=== PATIENT | male | born 1965 | race Hispanic/Latino ===

== ENCOUNTER 2019-09-04 03:17 | Inpatient (IN) | payer BC ==
--- NOTE | 2019-09-04 08:51 | History and Physical Report ---
GP History & Physical - History of Present Illness Date of admission: 09/03/19 Date of Examination: 09/04/19 Reason for Admission: Danger to self, Severe anxiety/depression Chief Complaint: I took a bottle of pills History of Present Illness: 54 year old , single male admitted to the unit 09/04/2019 for a suicide attempt. Pt OD on a large amount of Seroquel, Amlodopine, while drinking 9 can of beers. During patient's evaluation today, pt stated that he is here because he took too much medication because he was overwhelmed with all of the bad things that happened to him recently. Patient stated that his mom had , he's in a custody hanna with the mother of his son and his job is putting too much pressure on him. Pt continues by saying "she was just taking my money and blowing it." Pt stated that he was referring to the mother of his child who was reaching out to him saying she needed large amounts of money for the kid when in reality it was for her to use it on whatever she wanted. Pt confirms that he was sleeping well up until 6 months ago when all of this started to take place. Pt also stated that he has a good appetite, and he had not been drinking until Monday night when the pressure became too much. Pt denies hallucination, paranoia, and panic attacks but does state that he was prescribed Cymbalta 3-4 years ago that started from pressure at work. Pt denies any attempt of suicide and the past and confirms that this is his first attempt. Pt denies any family history of mental health conditions, denies legal issues, denies drug use and denies smoking but does state that he smokes sometimes. Pt denies having a gun and denies feeling suicidal at the moment. Pt had one concern regarding Seroquel, he would like to remove this medication. Pt states that Seroquel does help him sleep well but it carries over to the next day leaving him still sleepy and sluggish which has caused problems at work with him showing up and slurring his meds. The pt feels that the meds slows him down and that he tried cutting the dose and half but still received the same outcome. MSE Orientation: A&O X 4 Affect: flat Mood: depressed Thought Process:organized Perceptions: nad Speech: normal Concentration: focused Motor activity: normal Level of consciousness: alert and oriented Memory: intact Interaction: cooperative and pleasant Legal Status: Voluntary Patient Problems: Current Active Problems MDD (major depressive disorder), recurrent episode, severe (Acute) Reaction to Hospitalization: Accepting Medications and Allergies Allergies Allergy/AdvReac Type Severity Reaction Status Date / Time No Known Allergies Allergy Unverified 09/04/19 04:49 Home Medications Medication Instructions Recorded Confirmed Last Taken Type ARIPiprazole [Abilify TAB] 10 mg PO QHS 09/04/19 09/04/19 Unknown History Allopurinol [Zyloprim] 100 mg PO DAILY 09/04/19 09/04/19 Unknown History Duloxetine HCl 60 mg PO DAILY 09/04/19 09/04/19 Unknown History Ergocalciferol (Vitamin D2) 1.25 mg PO QWEEK 09/04/19 09/04/19 Unknown History [Drisdol] Finasteride 5 mg PO DAILY 09/04/19 09/04/19 Unknown History Furosemide [Lasix TAB] 40 mg PO PRN PRN 09/04/19 09/04/19 Unknown History Insulin Degludec [Tresiba 120 unit SQ QHS 09/04/19 09/04/19 Unknown History Flextouch U-200] amLODIPine 10 mg PO DAILY 09/04/19 09/04/19 Unknown History cycloSPORINE [SandIMMUNE] 25 mg PO BID 09/04/19 09/04/19 Unknown History cycloSPORINE, MODIFIED [Neoral] 100 mg PO BID 09/04/19 09/04/19 Unknown History Substance History - Substance History Drug Use: none Hx Tobacco Use: Yes Tobacco Type: Cigarettes (socially ) Alcohol Use: Yes (Only during this issue) Past psychiatric history - Past Medical History Past Medical History: diabetes, hypertension, other (sleep apnea) Past Surgical History: No surgical history, Other (liver transplant) - past Psychiatric treatment and history Psych: Anxiety, Depression - Social History Social history: single, Lives alone Results - Results Labs/Vitals: Laboratory Last Values POC Glucose 251 (70-105) H 09/04/19 07:53 Physical Examination - Constitutional General appearance: Present: no acute distress - EENT Eyes: Present: PERRL, EOM intact ENT: hearing intact, clear oral mucosa - Neck Neck: Present: supple, normal ROM - Respiratory Respiratory effort: normal Mental Status Exam - Exam Orientation: time, place, person Affect: depressed Mood: congruent with affect Thought Process: Intact Perceptions: none Speech: normal rate and pattern Concentration: focused Motor activity: normal Level of consciousness: alert Memory: Intact Sleep Symptoms: Insomnia Interaction: cooperative Mini mental status exam(if necessary): 24-30 Assessment and Plan - Psychiatric problem (1) MDD (major depressive disorder), recurrent episode, severe Current Visit: Yes Status: Acute plan to address problem: Patient will be admitted for inpatient psychiatric evaluation, medication adjustment and close monitoring The patient's behavior, mood, sleep and appetite will be closely monitored. Patient will be enrolled in individual and group therapeutic sessions and encouraged to attend. Patient will be provided with a safe and structured environment. Patient's physical health needs will be addressed by the Hospitalist. Social Assessment will be completed and the Insurance Sales Executive will work with patient and family to ensure a suitable and safe disposition Medication adjustment will be made as clinically indicated The patient agreed on the treatment plan, understood the risk, benefit, alternative treatment, potential consequence of no treatment, and gave informed consent. Physician Certification - Certification Statement Physician Certification Statement: This is an acknowledgement statement that ANA LAURA BENNETT is a 54 year old M who requires inpatient psychiatric admission for treatment which could reasonably be expected to improve the patient's condition for depression Estimated period of time patient will need to remain in the hospital: 7 days Plan for post-hospital care: Out-patient care
[2019-09-04 10:46] LABS: Basophils # (Auto) 0.1 K/mm3 (0.0-0.1); Basophils % (Auto) 0.7 % (0.0-1.8); Eosinophils # (Auto) 0.1 K/mm3 (0.0-0.4); Eosinophils % (Auto) 0.6 % (0.0-4.3); Hematocrit 32.8 % (35.5-45.6); Hemoglobin 11.1 gm/dl (11.8-15.2); Lymphocytes # (Auto) 2.1 K/mm3 (1.2-5.4); Lymphocytes % (Auto) 26.4 % (13.4-35.0); Mean Corpuscular HGB Conc 34 % (32-34); Mean Corpuscular Volume 94 fl (84-94); Monocytes # (Auto) 0.6 K/mm3 (0.0-0.8); Monocytes % (Auto) 8.1 % (0.0-7.3); Platelet Count 225 K/mm3 (140-440); Red Blood Count 3.49 M/mm3 (3.65-5.03); Red Cell Distribution Width 14.6 % (13.2-15.2)
[2019-09-04 11:02] LABS: BUN/Creatinine Ratio 21; Blood Urea Nitrogen 31 mg/dL (9-20); Calcium 9.2 mg/dL (8.4-10.2); Chol/HDL Ratio 4.02 %; HDL Cholesterol 41 mg/dL (40-59); Hemolysis Index 5; LDL Cholesterol,Direct TNR mg/dL (50-130)
[2019-09-04] MEDS ORDERED: FLU VACC QUAD 2019-20 (3 YR UP)/PF 60 MCG/0.5 ML SYRINGE IM ONE (12:00)
--- NOTE | 2019-09-04 14:24 | Consultation ---
History of Present Illness - Reason for Consult Consult date: 09/04/19 Hypertension, diabetes Requesting physician: SHARON MARTINEZ - History of Present Illness Patient is 54 year old admitted to [place] for a suicide attempt. He allegedly took large amount of Seroquel, Amlodopine, while drinking 9 can of beers. He has hypertension, diabetes, history of liver transplant.. The hospitalist service has been consulted for management of medical co-morbidities. He denies chest pain, shortness of breath. Past History Past Medical History: diabetes, hypertension, other (sleep apnea) Past Surgical History: No surgical history, Other (liver transplant) Social history: single, Lives alone Family history: other (Unknown) Medications and Allergies Allergies Allergy/AdvReac Type Severity Reaction Status Date / Time No Known Allergies Allergy Unverified 09/04/19 04:49 Home Medications Medication Instructions Recorded Confirmed Last Taken Type ARIPiprazole [Abilify TAB] 10 mg PO QHS 09/04/19 09/04/19 Unknown History Allopurinol [Zyloprim] 100 mg PO DAILY 09/04/19 09/04/19 Unknown History Duloxetine HCl 60 mg PO DAILY 09/04/19 09/04/19 Unknown History Ergocalciferol (Vitamin D2) 1.25 mg PO QWEEK 09/04/19 09/04/19 Unknown History [Drisdol] Finasteride 5 mg PO DAILY 09/04/19 09/04/19 Unknown History Furosemide [Lasix TAB] 40 mg PO PRN PRN 09/04/19 09/04/19 Unknown History Insulin Degludec [Tresiba 120 unit SQ QHS 09/04/19 09/04/19 Unknown History Flextouch U-200] amLODIPine 10 mg PO DAILY 09/04/19 09/04/19 Unknown History cycloSPORINE [SandIMMUNE] 25 mg PO BID 09/04/19 09/04/19 Unknown History cycloSPORINE, MODIFIED [Neoral] 100 mg PO BID 09/04/19 09/04/19 Unknown History Review of Systems All systems: negative (No headache, no fever, no abd pain, no cough. All other systems reviewed and are negative.) Exam - Physical Exam Narrative exam: Gen: Not in acute distress, lying in bed, HEENT: Normocephalic, atraumatic Neck: supple, no JVD Heart: S1 and S2 reg, no murmurs, rubs or gallop Lungs: Clear to auscultation bilaterally, Abd: soft, non tender, non distended, normal BS, Ext: No edema, no clubbing, no cyanosis Neuro: Awake, alert, oriented X 3, no focal neurological signs - Constitutional Vitals: Temp Pulse Resp BP Pulse Ox 97.8 F 74 18 107/70 95 09/04/19 09:16 09/04/19 09:16 09/04/19 09:16 09/04/19 09:16 09/04/19 09:16 Results - Labs CBC & Chem 7: 09/04/19 10:00 09/04/19 10:00 Labs: Abnormal lab results 09/04/19 09/04/19 09/04/19 Range/Units 05:47 07:53 10:00 RBC 3.49 L (3.65-5.03) M/mm3 Hgb 11.1 L (11.8-15.2) gm/dl Hct 32.8 L (35.5-45.6) % [place] % (Auto) 8.1 H (0.0-7.3) % BUN (9-20) mg/dL Glucose (75-100) mg/dL POC Glucose 237 H 251 H (70-105) Hemoglobin A1c (4-6) % Triglycerides (2-149) mg/dL 09/04/19 09/04/19 09/04/19 Range/Units 10:00 10:00 11:48 RBC (3.65-5.03) M/mm3 Hgb (11.8-15.2) gm/dl Hct (35.5-45.6) % [place] % (Auto) (0.0-7.3) % BUN 31 H (9-20) mg/dL Glucose 278 H (75-100) mg/dL POC Glucose 229 H (70-105) Hemoglobin A1c 10.5 H (4-6) % Triglycerides 452 H (2-149) mg/dL Assessment and Plan Suicide attempt with drug overdose. Admitted to [facility] Unit Dr. Martinez attending Hypertension Monitor BP Diabetes mellitus type 2. Accuchek qa and hs he was on Tresiba at home Will give Novolin 70/30 bid here History of liver transplant Continue Cyclosporine Thanks Dr. Martinez for consulting us. Will follow peripherally.
[2019-09-04] MEDS ORDERED: DEXTROSE 50% IN WATER (25GM) 50 ML SYRINGE IV PRN (16:41)
[2019-09-04] MEDS ORDERED: NON-FORMULARY EACH (Duloxetine Hcl [Duloxetine Hcl] 60 MG) PO SCH (16:45)
[2019-09-04] MEDS: amLODIPine 10 MG TAB PO SCH (17:18)
[2019-09-04] MEDS: DULoxetine 30 MG CAP PO SCH (17:18)
[2019-09-04] MEDS: FINASTERIDE 5 MG TAB PO SCH (17:32)
[2019-09-04] MEDS: allopurinoL 100 MG TAB PO SCH (17:32)
[2019-09-04] MEDS: INSULIN NPH/REGULAR 70/30 INJ SUB-Q SCH (17:55)
[2019-09-04] MEDS: ARIPiprazole 10 MG TAB PO SCH (21:29)
[2019-09-04] MEDS: CYCLOSPORINE MODIFIED 25 MG PO SCH (21:30)
[2019-09-04] MEDS: INSULIN LISPRO 100 UNIT/ML SUB-Q SCH (21:30)
[2019-09-04] MEDS ORDERED: CYCLOSPORINE 25 MG PO SCH (22:00)
--- NOTE | 2019-09-05 07:27 | Progress Note ---
Subjective Date of service: 09/05/19 Principal diagnosis: Anxiety/Depression Subjective Comment: Patient presented sleeping with c-pap. Patient states that he slept great last night with no complaints. He describes his mood as good and expresses that he feels the effects of improvement. Patient only concern was to get back to work so he inquired about his date for discharge and stated that "I understand what I did wrong immediately after I done it". The Cargo Vessel Stewardess is working with patient to address multiple social stressors and I have encouraged him to participate in therapeutic activities on the holley focussing on coping skills Per nurses notes: Pt is alert and oriented x4, pt is calm and cooperative, able to make needs known, self care, reported that he sleeps with CPAP machine every night, hospitalist special collections librarian notified, order put in for cpap machine nightly, pt is slept with cpap machine on, pt slept well throughout the night, pt is compliant with medication, good appetite, consumed 100% of bedtime snacks, denies SI/HI, denies A/V/H, denies pain. Objective - Criteria for Continued Treatment Criteria for Continued Treatment: Improving Level of Functioning - Mental Status Mental Status: Oriented x 3 - Objective Observation Participation Level: Full Assessment and Plan - Patient Problems (1) MDD (major depressive disorder), recurrent episode, severe Current Visit: Yes Status: Acute Plan to address problem: Patient will be admitted for inpatient psychiatric evaluation, medication adjustment and close monitoring The patient's behavior, mood, sleep and appetite will be closely monitored. Patient will be enrolled in individual and group therapeutic sessions and encouraged to attend. Patient will be provided with a safe and structured environment. Patient's physical health needs will be addressed by the Hospitalist. Social Assessment will be completed and the Cargo Vessel Stewardess will work with patient and family to ensure a suitable and safe disposition Medication adjustment will be made as clinically indicated The patient agreed on the treatment plan, understood the risk, benefit, alternative treatment, potential consequence of no treatment, and gave informed consent. Medications and Allergies Allergies Allergy/AdvReac Type Severity Reaction Status Date / Time No Known Allergies Allergy Unverified 09/04/19 04:49 Home Medications Medication Instructions Recorded Confirmed Last Taken Type ARIPiprazole [Abilify TAB] 10 mg PO QHS 09/04/19 09/04/19 Unknown History Allopurinol [Zyloprim] 100 mg PO DAILY 09/04/19 09/04/19 Unknown History Duloxetine HCl 60 mg PO DAILY 09/04/19 09/04/19 Unknown History Ergocalciferol (Vitamin D2) 1.25 mg PO QWEEK 09/04/19 09/04/19 Unknown History [Drisdol] Finasteride 5 mg PO DAILY 09/04/19 09/04/19 Unknown History Furosemide [Lasix TAB] 40 mg PO PRN PRN 09/04/19 09/04/19 Unknown History Insulin Degludec [Tresiba 120 unit SQ QHS 09/04/19 09/04/19 Unknown History Flextouch U-200] amLODIPine 10 mg PO DAILY 09/04/19 09/04/19 Unknown History cycloSPORINE [SandIMMUNE] 25 mg PO BID 09/04/19 09/04/19 Unknown History cycloSPORINE, MODIFIED [Neoral] 100 mg PO BID 09/04/19 09/04/19 Unknown History Active Meds: Active Medications Allopurinol (Zyloprim) 100 mg PO DAILY [facility] Last Admin: 09/04/19 17:32 Dose: 100 mg Documented by: Amlodipine Besylate (Amlodipine) 10 mg PO DAILY [facility] Last Admin: 09/04/19 17:18 Dose: 10 mg Documented by: Aripiprazole (Aripiprazole) 10 mg PO QHS [facility] Last Admin: 09/04/19 21:29 Dose: 10 mg Documented by: Cyclosporine (Neoral) 100 mg PO BID [facility] Last Admin: 09/04/19 21:30 Dose: 100 mg Documented by: Cyclosporine (Gengraf) 25 mg PO BID [facility] Last Admin: 09/04/19 21:30 Dose: 25 mg Documented by: Dextrose (D50w (25gm) Syringe) 50 ml IV Q30MIN PRN; Protocol PRN Reason: Hypoglycemia Duloxetine HCl (Cymbalta) 60 mg PO QDAY [facility] Last Admin: 09/04/19 17:18 Dose: 60 mg Documented by: Ergocalciferol (Vitamin D2) 50,000 unit PO [facility] [place]ide (Proscar) 5 mg PO DAILY [facility] Last Admin: 09/04/19 17:32 Dose: 5 mg Documented by: Insulin Human Isoph/Insulin Regular (Humulin 70/30) 30 unit SUB-Q BIDDIAB [facility] Last Admin: 09/04/19 17:55 Dose: 30 unit Documented by: Insulin Human Lispro (Humalog) 0 unit SUB-Q [place]; Protocol Insulin Human Lispro (Humalog) 0 unit SUB-Q [facility]; Protocol Last Admin: 09/04/19 21:30 Dose: 3 unit Documented by: Results - Results Labs/Vitals: Laboratory Last Values WBC 8.0 K/mm3 (4.5-11.0) 09/04/19 10:00 RBC 3.49 M/mm3 (3.65-5.03) L 09/04/19 10:00 Hgb 11.1 gm/dl (11.8-15.2) L 09/04/19 10:00 Hct 32.8 % (35.5-45.6) L 09/04/19 10:00 MCV 94 fl (84-94) 09/04/19 10:00 MCH 32 pg (28-32) 09/04/19 10:00 MCHC 34 % (32-34) 09/04/19 10:00 RDW 14.6 % (13.2-15.2) 09/04/19 10:00 Plt Count 225 K/mm3 (140-440) 09/04/19 10:00 Lymph % (Auto) 26.4 % (13.4-35.0) 09/04/19 10:00 [place] % (Auto) 8.1 % (0.0-7.3) H 09/04/19 10:00 Eos % (Auto) 0.6 % (0.0-4.3) 09/04/19 10:00 Baso % (Auto) 0.7 % (0.0-1.8) 09/04/19 10:00 Lymph # 2.1 K/mm3 (1.2-5.4) 09/04/19 10:00 [place] # 0.6 K/mm3 (0.0-0.8) 09/04/19 10:00 Eos # 0.1 K/mm3 (0.0-0.4) 09/04/19 10:00 Baso # 0.1 K/mm3 (0.0-0.1) 09/04/19 10:00 Seg Neutrophils % 64.2 % (40.0-70.0) 09/04/19 10:00 Seg Neutrophils # 5.1 K/mm3 (1.8-7.7) 09/04/19 10:00 Sodium 138 mmol/L (137-145) 09/04/19 10:00 Potassium 3.8 mmol/L (3.6-5.0) 09/04/19 10:00 Chloride 98.9 mmol/L (98-107) 09/04/19 10:00 Carbon Dioxide 23 mmol/L (22-30) 09/04/19 10:00 Anion Gap 20 mmol/L 09/04/19 10:00 BUN 31 mg/dL (9-20) H 09/04/19 10:00 Creatinine 1.5 mg/dL (0.8-1.5) 09/04/19 10:00 Estimated GFR 49 ml/min 09/04/19 10:00 BUN/Creatinine Ratio 21 % 09/04/19 10:00 Glucose 278 mg/dL (75-100) H 09/04/19 10:00 POC Glucose 232 (70-105) H 09/04/19 20:23 Hemoglobin A1c 10.5 % (4-6) H 09/04/19 10:00 Calcium 9.2 mg/dL (8.4-10.2) 09/04/19 10:00 Triglycerides 452 mg/dL (2-149) H 09/04/19 10:00 Cholesterol 165 mg/dL (50-199) 09/04/19 10:00 LDL Cholesterol Direct TNR 09/04/19 10:00 HDL Cholesterol 41 mg/dL (40-59) 09/04/19 10:00 Cholesterol/HDL Ratio 4.02 % 09/04/19 10:00 Last Vital Signs Temp 98.6 F 09/04/19 22:00 Pulse 78 09/04/19 22:00 Resp 20 09/04/19 22:00 BP 145/78 09/04/19 22:00 Pulse Ox 98 09/04/19 22:00 Mental Status Exam - Vital signs Last Vital Signs Temp 98.6 F 09/04/19 22:00 Pulse 85 09/05/19 09:59 Resp 20 09/04/19 22:00 BP 136/82 09/05/19 09:59 Pulse Ox 98 09/04/19 22:00 - Exam Orientation: time, place, person Affect: anxious Mood: anxious Thought Process: Intact Perceptions: none Speech: normal rate and pattern Concentration: focused Motor activity: normal Level of consciousness: alert Memory: Intact Sleep Symptoms: None Interaction: cooperative Mini mental status exam(if necessary): 24-30
[2019-09-05] MEDS: INSULIN LISPRO 100 UNIT/ML SUB-Q SCH ×4 (08:38→22:00)
[2019-09-05] MEDS: INSULIN NPH/REGULAR 70/30 INJ SUB-Q SCH ×2 (09:17→16:40)
[2019-09-05] MEDS: amLODIPine 10 MG TAB PO SCH (09:59)
[2019-09-05] MEDS: DULoxetine 30 MG CAP PO SCH (09:59)
[2019-09-05] MEDS: FINASTERIDE 5 MG TAB PO SCH (10:00)
[2019-09-05] MEDS: CYCLOSPORINE MODIFIED 25 MG PO SCH ×2 (10:00→21:32)
[2019-09-05] MEDS: allopurinoL 100 MG TAB PO SCH (10:01)
[2019-09-05] MEDS: ARIPiprazole 10 MG TAB PO SCH (21:32)
[2019-09-06] MEDS: INSULIN LISPRO 100 UNIT/ML SUB-Q SCH ×2 (07:45→12:05)
--- NOTE | 2019-09-06 08:28 | Discharge Summary ---
Providers - Providers Date of Admission: 09/04/19 05:26 Date of discharge: 09/06/19 Attending physician: SHARON MARTINEZ MD 09/04/19 10:00 Consult to Physician [CONS] Routine Comment: Consulting Provider: EDUARDO GREENWOOD Physician Instructions: Reason For Exam: H&P and medical mgmt Primary care physician: SHARON MARTINEZ MD Hospitalization Reason for admission: Suicide attempt by od a large amount of tabs, while drinking 9 can of beers Condition: Stable Hospital course: The patient was provided inpatient psychiatric treatment with safe and supportive environment, group therapy, individual counseling, psychiatric medication, medication adjustment, adverse effect monitor, medical evaluation, medical treatment, social service assessment, family/social support meeting, placement assessment and psycho-education. The patients mood, anxiety, thoughts, stress management skill, cognition, impulse/anger control, motivation, understanding of disease, compliance to treatment and appreciation on family/social support are improved and stabilized. At the time of discharge, the patient had no suicidal ideas, no homicidal ideas, no aggressive thoughts, no endangering behavior and no debilitating adverse effects. Disposition: DC- TO HOME OR SELFCARE Allergies/Adverse Reactions: Allergies No Known Allergies Allergy (Unverified 09/04/19 04:49) Vital Signs: Last Vital Signs Temp 98.6 F 09/04/19 22:00 Pulse 85 09/05/19 09:59 Resp 20 09/04/19 22:00 BP 136/82 09/05/19 09:59 Pulse Ox 98 09/04/19 22:00 Last Lab: Laboratory Last Values WBC 8.0 K/mm3 (4.5-11.0) 09/04/19 10:00 RBC 3.49 M/mm3 (3.65-5.03) L 09/04/19 10:00 Hgb 11.1 gm/dl (11.8-15.2) L 09/04/19 10:00 Hct 32.8 % (35.5-45.6) L 09/04/19 10:00 MCV 94 fl (84-94) 09/04/19 10:00 MCH 32 pg (28-32) 09/04/19 10:00 MCHC 34 % (32-34) 09/04/19 10:00 RDW 14.6 % (13.2-15.2) 09/04/19 10:00 Plt Count 225 K/mm3 (140-440) 09/04/19 10:00 Lymph % (Auto) 26.4 % (13.4-35.0) 09/04/19 10:00 [place] % (Auto) 8.1 % (0.0-7.3) H 09/04/19 10:00 Eos % (Auto) 0.6 % (0.0-4.3) 09/04/19 10:00 Baso % (Auto) 0.7 % (0.0-1.8) 09/04/19 10:00 Lymph # 2.1 K/mm3 (1.2-5.4) 09/04/19 10:00 [place] # 0.6 K/mm3 (0.0-0.8) 09/04/19 10:00 Eos # 0.1 K/mm3 (0.0-0.4) 09/04/19 10:00 Baso # 0.1 K/mm3 (0.0-0.1) 09/04/19 10:00 Seg Neutrophils % 64.2 % (40.0-70.0) 09/04/19 10:00 Seg Neutrophils # 5.1 K/mm3 (1.8-7.7) 09/04/19 10:00 Sodium 138 mmol/L (137-145) 09/04/19 10:00 Potassium 3.8 mmol/L (3.6-5.0) 09/04/19 10:00 Chloride 98.9 mmol/L (98-107) 09/04/19 10:00 Carbon Dioxide 23 mmol/L (22-30) 09/04/19 10:00 Anion Gap 20 mmol/L 09/04/19 10:00 BUN 31 mg/dL (9-20) H 09/04/19 10:00 Creatinine 1.5 mg/dL (0.8-1.5) 09/04/19 10:00 Estimated GFR 49 ml/min 09/04/19 10:00 BUN/Creatinine Ratio 21 % 09/04/19 10:00 Glucose 278 mg/dL (75-100) H 09/04/19 10:00 POC Glucose 173 (70-105) H 09/06/19 07:26 Hemoglobin A1c 10.5 % (4-6) H 09/04/19 10:00 Calcium 9.2 mg/dL (8.4-10.2) 09/04/19 10:00 Triglycerides 452 mg/dL (2-149) H 09/04/19 10:00 Cholesterol 165 mg/dL (50-199) 09/04/19 10:00 LDL Cholesterol Direct TNR 09/04/19 10:00 HDL Cholesterol 41 mg/dL (40-59) 09/04/19 10:00 Cholesterol/HDL Ratio 4.02 % 09/04/19 10:00 - Discharge Diagnoses (1) MDD (major depressive disorder), recurrent episode, severe Status: Acute Core Measure Documentation - Palliative Care Palliative Care/ Comfort Measures: Not Applicable - Core Measures Any of the following diagnoses?: none Exam - Constitutional Vitals: Temp Pulse Resp BP Pulse Ox 98.6 F 85 20 136/82 98 09/04/19 22:00 09/05/19 09:59 09/04/19 22:00 09/05/19 09:59 09/04/19 22:00 General appearance: Present: no acute distress, well-nourished - EENT Eyes: Present: PERRL, EOM intact ENT: hearing intact, clear oral mucosa - Neck Neck: Present: supple, normal ROM - Respiratory Respiratory effort: normal Plan Activity: advance as tolerated Weight Bearing Status: Weight Bear as Tolerated Care Plan Goals: Maintain good and stable mental health Plan of Treatment: Take medications as prescribed Health Concerns: Sleep apnea Assessment: Depression Follow up with: SHARON MARTINEZ MD [Primary Care Provider] - 7 Days
[2019-09-06] MEDS: INSULIN NPH/REGULAR 70/30 INJ SUB-Q SCH (08:41)
[2019-09-06 08:50] VITALS: BP 145/82
[2019-09-06] MEDS: amLODIPine 10 MG TAB PO SCH (09:33)
[2019-09-06] MEDS: FINASTERIDE 5 MG TAB PO SCH (09:34)
[2019-09-06] MEDS: allopurinoL 100 MG TAB PO SCH (09:34)
[2019-09-06] MEDS: CYCLOSPORINE MODIFIED 25 MG PO SCH (09:34)
[2019-09-06] MEDS: DULoxetine 30 MG CAP PO SCH (09:35)
[2019-09-10] MEDS ORDERED: ERGOCALCIFEROL (VIT D2) 50,000 UNIT CAP PO SCH (10:00)
== END 2019-09-06 12:15 | disposition home or self-care (01) | DRG 885 ==
LOC: 5A 05:26
PROVIDERS: ADMIT Psychiatry & Neurology Psychiatry; ATTEND Psychiatry & Neurology Psychiatry
PROC: 5A09357 Assistance with Respiratory Ventilation, Less than 24 Consecutive Hours, Continuous Positive Airway Pressure (ICD-10-PCS; principal; 2019-09-04)
DX: F33.2 Major depressive disorder, recurrent severe without psychotic features (principal); Z94.4 Liver transplant status; F17.210 Nicotine dependence, cigarettes, uncomplicated; F41.9 Anxiety disorder, unspecified; E11.9 Type 2 diabetes mellitus without complications; G47.30 Sleep apnea, unspecified; I10 Essential (primary) hypertension; Z60.2 Problems related to living alone; Z79.899 Other long term (current) drug therapy; Z79.4 Long term (current) use of insulin
CPT/HCPCS: 36415; 80048; 80061; 82962; 83036; 85025; 90686; 94660; G0378; J1815; J7502; J7515